=== PATIENT | female | born 1975 | race Caucasian/White ===

== ENCOUNTER 2020-08-20 20:56 | Emergency (ER) | payer OTHER ==
[~2020-08-20 20:56] MED LIST: AUGMENTIN 875-1 EACH PO; CIPRO500 MG PO; EFFEXOR XR37.5 MG PO; IMITREX50 MG PO; KETOROLAC TROME10 MG PO; MEDROL 4MG DOSEP4 MG PO; NYSTATIN SUSP1 ML/ML SSP; PREDNISONE 20MG20 MG PO; ROBITUSSIN W/COD5 ML PO; SEROQUEL 100MG100 MG PO; TESSALON PERLE100 MG PO; VENTOLIN HFA IN18 GM INH; ZOFRAN4 MG PO
== END 2020-08-20 22:46 | disposition home or self-care (01) ==
LOC: FER 20:56
DX: M70.42 Prepatellar bursitis, left knee (principal); N18.9 Chronic kidney disease, unspecified; F31.9 Bipolar disorder, unspecified; Z98.890 Other specified postprocedural states; Z79.899 Other long term (current) drug therapy; Z88.2 Allergy status to sulfonamides; Z88.8 Allergy status to other drugs, medicaments and biological substances
CPT/HCPCS: 73564

== ENCOUNTER 2021-05-03 19:31 | Emergency (ER) | payer OTHER | END 2021-05-03 20:35 | disposition home or self-care (01) | LOC: FER 19:31 | DX: R21 Rash and other nonspecific skin eruption (principal); Z88.2 Allergy status to sulfonamides; Z88.8 Allergy status to other drugs, medicaments and biological substances ==

== ENCOUNTER 2021-07-03 19:00 | Emergency (ER) | payer OTHER ==
[~2021-07-03 19:00] MED LIST changes: +KLOR-CON M2020 MEQ PO
[2021-07-03 20:07] LABS: BASOPHIL 0.4 % (0-2); EOSINOPHIL 0.1 % (0-5); HCT 40.1 % (37.0-47.0); HGB 13.3 g/dl (12.5-16.0); LYMPHOCYTE 8.2 % (15-48); MCH 27.4 pg (25.0-31.0); MCHC 33.2 g/dL (32.0-36.0); MCV 82.5 fL (78.0-100.0); MONOCYTE 9.3 % (0-12); MPV 9.9 fL (6.0-9.5); NEUTROPHIL 81.4 % (41-80); NRBC 0; PLT 309 K/uL (150-400); RBC 4.86 M/uL (4.20-5.40); RDW 14.5 % (11.5-14.0); WBC 14.2 K/uL (4.0-10.5)
[2021-07-03 20:07] LABS: BILIRUBIN 1+ mg/dL (NEGATIVE); BLOOD 1+ Ery/uL (NEGATIVE); CLARITY CLEAR (CLEAR); COLOR YELLOW (YELLOW); GLUCOSE (U) NORMAL (NORMAL); LEUKOCYTES NEGATIVE Leu/uL (NEGATIVE); NITRITE NEGATIVE (NEGATIVE); PROTEIN NEGATIVE (NEGATIVE); UROBILINOGEN 0.2 mg/dL (0.2-1.0)
[2021-07-03 20:21] LABS: BACTERIA TRACE
[2021-07-03 20:53] LABS: CORONAVIRUS 2019 SARS-COV-2 NEGATIVE (NEGATIVE); INFLUENZA A NAA NEGATIVE (NEGATIVE)
[2021-07-03 21:12] LABS: LACTIC ACID 1.8 mmol/L (0.4-1.9)
[2021-07-03 21:37] LABS: BUN/CREAT RATIO (CALC) 15.4 RATIO; CREATININE 0.65 mg/dL (0.51-0.95); POTASSIUM 3.8 mmol/L (3.5-5.1)
[2021-07-03] MEDS ORDERED: PHENERGAN25 M1 PO (22:03)
== END 2021-07-03 22:15 | disposition home or self-care (01) ==
LOC: FER 19:00
PROVIDERS: Nurse Practitioner Family
DX: K80.80 Other cholelithiasis without obstruction (principal); R06.02 Shortness of breath; R05.9 Cough, unspecified; R31.9 Hematuria, unspecified; Z88.2 Allergy status to sulfonamides; Z88.8 Allergy status to other drugs, medicaments and biological substances; Z20.822 Contact with and (suspected) exposure to COVID-19
CPT/HCPCS: 36415; 71045; 80048; 81001; 83605; 85025; 87088; 87880; J1885; J2270; J2405; J2550; J7030; U0002